=== PATIENT | female | born 1950 | race American Indian/Alaskan Native ===

== ENCOUNTER 2018-12-21 08:11 | Day surgery (SDC) | payer MEDICARE ==
--- NOTE | 2018-12-21 09:41 | CP.SDSHP ---
Same Day Surgery H & P - History Proposed Procedure: US guided FNA of thyroid nodules Pre-Op Diagnosis: Thyroid nodules - Allergies Allergies: Allergies No Known Allergies Allergy (Unverified 01/17/15 12:48) - Impression Impression: Pt with multiple subcentimeter thyroid nodules too small for FNA. US performed showed three nodules left thyroid measuring up to 7 mm. The nodule measuring 1.2 cm on outside study is not seen and is likely based on measuring 2 adjacent nodules. FNA is not performed. Recommend follow up ultrasound in 12 months. Short Stay Discharge - Short Stay Discharge Admitting Diagnosis/Reason for Visit: DX: THYROID NODULE Disposition: HOME/ ROUTINE
--- NOTE | 2018-12-21 12:20 | US ---
PROCEDURE: Date of study: 12/19/2017 Study: Limited ultrasound of thyroid for FNA Findings: Limited ultrasound of right and left thyroid gland was performed using a linear probe. Several subcentimeter nodules are seen within the left thyroid gland and within the right thyroid gland. There are two 7 millimeter nodules in the mid and lower pole of the left thyroid. Previously described nodule measuring 1.2 centimeter from an outside study is not identified. When the 2 nodules in the mid and lower pole are measured together, the size is 1.22 centimeters. Impression: Sub centimeter nodules within the left thyroid gland in the right thyroid gland measuring up to 7 millimeters. These are too small for FNA. Recommend follow up surveillance in 1 year.
== END 2018-12-21 09:31 | disposition home or self-care (01) ==
LOC: C.SPRAD 08:11
PROVIDERS: ATTEND Radiology Vascular & Interventional Radiology
DX: E04.1 Nontoxic single thyroid nodule (principal); Z53.8 Procedure and treatment not carried out for other reasons